=== PATIENT | male | born 1945 | race Caucasian/White ===

== ENCOUNTER 2023-06-08 12:44 | Emergency (ER) | payer MEDICARE, OTHER, SELFPAY ==
[2023-06-08 12:45] VITALS: BP 183/96
[2023-06-08 13:13] VITALS: BMI 33.8
--- NOTE | 2023-06-08 14:28 | ED.GENMED ---
History of Present Illness
General
Chief Complaint: Musculo-Skeletal Complaint
Source: patient
Exam Limitations: none
Time Seen by Provider: 06/08/23 13:02
Nursing documentation reviewed up to this point in time: agreed with
Travel History
Have you had any contact with someone who has COVID-19?: No
Do you have any symptoms of coronavirus? Fever > 100 degrees, chills, cough, shortness of breath, sore throat, loss of taste or smell, muscle aches, or headache?: No
History of Present Illness
History of Present Illness:
77-year-old male with past medical history of diabetes hypertension hyperlipidemia presenting to the emergency department today with concerns of injury to the left pinky finger as well as an injury to the nail of the middle finger of the left hand.
Claims that he fell and hit his hand causing it obvious deformity to the left pinky finger. Additionally he closed his third finger of the left hand in a door 2 days ago now has pressure behind the nailbed and black discoloration. Denies any
additional injuries no numbness weakness no additional concerns no breaks in the skin
Past History
Past History
ED Past Medical History: HTN, Hypercholesterolemia and NIDDM
ED Past Surgical History: None
Social History
Tobacco: Non-smoker
Alcohol: Occasional
Drug: None
Personal:
Living: with family
Review of Systems
Review of Systems
Allergies reviewed?: Yes
All Other Systems: ROS reviewed and negative except as documented in HPI and ROS
Phy Exam
Physical Exam
Physical Exam:
GENERAL: Alert , in no apparent distress
EYE: pupils equal and reactive
NECK: Supple, no significant adenopathy.
ENT: o/p clr, mmm.
CARDIAC: Regular rate and rhythm .
LUNGS: Clear breath sounds bilaterally, no acute respiratory distress, no wheezes/rales/rhonchi
ABDOMEN: Soft, without focal tenderness, no r/g, no cvat
NEUROLOGICAL: Alert and oriented, no focal neuro deficits
SKIN: Deformed left pinky finger at the PIP, black discoloration underneath the third finger nailbed
MUSCULOSKELETAL: No edema, well perfused.
PSYCH: Normal and appropriate interaction.
Course
Orders/Labs/Results
Orders:
Orders
06/08/23 13:02
CR Hand - Left Min 3 Views Urgent
Comment:
Reason For Exam: left hand injury
Vital Signs
Initial and Last Documented VS:
Initial Vital Signs
Temp Pulse Resp BP Pulse Ox
98.3 F 90 18 183/96 96
06/08/23 12:45 06/08/23 12:45 06/08/23 12:45 06/08/23 12:45 06/08/23 12:45
Last Documented Vital Signs
Temp Pulse Resp BP Pulse Ox
98.3 F 90 18 156/82 97
06/08/23 12:45 06/08/23 12:45 06/08/23 12:45 06/08/23 14:37 06/08/23 14:37
Procedures
Joint/Fracture Reduction
Left Fifth Finger:
Indication for procedure:: Dislocation of the middle phalanx of the left digit,
Procedure completed by: Tere Ureña
Consent form signed: No
If no, reason: Emergency procedure
Joint reduced: no treatment at this time
Anesthesia/sedation: Regional block (Digital block performed with 1% lidocaine)
Injury was: closed
Further treatement: needs re-check only
Post reduction exam: stable
Capillary Refill: normal
Normal distal neurovascular exam?: Yes
Additional information:
This was a reduction of the dislocation of the middle phalanx of the left fifth digit. The finger was anesthetized with a digital block. Patient tolerated well. This was splinted after with an aluminum splint wrapped with an Dave bandage.
Nail Trepanation/Felon
Method of Drainage: nail cauterized
Sterile dressing applied: Yes
Finger splint applied: Yes
Additional information:
Left third finger moderate blood removed symptoms significantly improved.
MDM/Problems Addressed
MDM/Problems Addressed:
77-year-old male presenting to the emergency department after falling and hitting his left hand causing deformity to the left fifth digit injured his left middle finger and has a subungual hematoma from an injury a few days ago. Subungual hematoma
was drained with electrocautery. Patient tolerated well. Otherwise his dislocation of his middle phalanx was reduced after performing a digital block. Patient tolerated well then was splinted will follow-up with hand surgery. Return precautions
given.
*Critical Care Note
Total Time (30-74mins, 75-104mins- exclusive of procedures): Not Applicable
ED Attending Note
-
Portions of this chart may have been created with voice recognition software.� Occasional wrong word or��sound alike� substitutions may have occurred due to the inherent limitations of voice recognition software.
Discharge Plan
Departure
Patient Disposition: Home (Routine Discharge)
Date of Disposition: 06/08/23
Time of Disposition: 14:28
Patient with high blood pressure during this ER visit?: No
Condition: Good
Covid-19: Not Applicable
Discharge Problem:
Closed dislocation of phalanx of hand, Subungual hematoma
Instructions: Finger Dislocation (DC), Bruising Under the Nail
Prescriptions:
No Action
Amlodipine
1 tab PO DAILY
Patient Comments:
09/12 unsure second med
metformin 500 MG tablet
500 mg PO BID
aspirin 81 MG tablet,delayed release (DR/EC)
81 mg PO DAILY
simvastatin 40 MG tablet
40 mg PO QPM
docosahexaenoic acid-epa 1 CAP capsule
2 cap PO DAILY
wgokexrn-imf-HI-lycopen-lutein [Centrum Silver] 1 EACH tablet
1 tab PO DAILY
fenofibrate nanocrystallized 145 MG tablet
145 mg PO DAILY
clindamycin HCl 300 MG capsule
300 mg PO QID Qty: 28 0RF
Referrals:
Anne Warren MD [Family Provider] -
Lance Ariza MD [Active] - Follow up in 5-7 days
Activity Restrictions/Additional Instructions:
You came to the emergency department today with concerns of a finger dislocation as well as bruising underneath your nailbed. These both were treated here. Please leave the splint in place and keep the area clean and covered until follow-up with
the hand doctor. Return to the emergency department for any worsening, new or concerning symptoms.
Interventions
Interventions:
*Risk Screen - Suicide Last Done: 06/08/23 13:03
*General Assessment Last Done: 06/08/23 13:13
*Neglect/Abuse Screening Last Done: 06/08/23 13:03
ED- Fall Risk Assessment Last Done: 06/08/23 13:03
*ED COVID-19 Vaccine History Last Done: 06/08/23 13:03
*Nursing Disposition Last Done: 06/08/23 14:37
ED-Musculoskeletal Assessment Last Done: 06/08/23 13:02
Discharge Date and Time
Discharge Date/Time: 06/08/23 14:38
[2023-06-08 14:37] VITALS: BP 156/82
== END 2023-06-08 14:38 | disposition home or self-care (01) ==
LOC: EMR 12:44
PROVIDERS: EMERGENCY PHYSICIAN Emergency Medicine; FAMILY PHYSICIAN Internal Medicine
DX: S63.297A Dislocation of distal interphalangeal joint of left little finger, initial encounter (principal); S60.032A Contusion of left middle finger without damage to nail, initial encounter; W23.0XXA Caught, crushed, jammed, or pinched between moving objects, initial encounter
CPT/HCPCS: 99284; 26770; 64450; 11740; 73130

== ENCOUNTER 2023-10-07 16:06 | Emergency (ER) | payer MEDICARE, OTHER, SELFPAY ==
[2023-10-07 16:09] VITALS: BP 156/74
[2023-10-07 16:38] LABS: Glucose - Point of Care 140 mg/dl (70-99)
--- NOTE | 2023-10-07 19:20 | ED.GENMED ---
History of Present Illness
General
Chief Complaint: Fatigue
Source: patient
Exam Limitations: none
Time Seen by Provider: 10/07/23 17:58
Nursing documentation reviewed up to this point in time: agreed with
Travel History
Have you had any contact with someone who has COVID-19?: No
Do you have any symptoms of coronavirus? Fever > 100 degrees, chills, cough, shortness of breath, sore throat, loss of taste or smell, muscle aches, or headache?: No
History of Present Illness
History of Present Illness:
78 y/o M with h/o HTN, HLD, NIDDM
says that 09/20 he started with fever, t max 102.7, treated with tylenol; fevers lasted about 1 week and then resolved
while he had the fever, his only real other symptom was fatigue
the fevers resolved and then he started having night sweats, narciso the first half of the night, he wakes up soaked in his pillow and upper part of his shirt
he changes locations, moves to the couch and then has an ok rest of the night
no longer having fever
very minimal occ cough
also have unexplained weight loss, lost about 10 pounds in 2weeks
on 10/03 he went to PCP and had labs and swabbed for covid and cxr
his labs i can reviewe on his phone: normal wbc, normal chem panel other than mild tranaminitis 60s,80s
cxr unable to be read, no reading on it and i cannot see it
ua glucose only
covid neg, lyme neg, mono neg
he is here becuase he isn't sure what to do
he wants to be sure there isn't something else candace gary
and was wondering if this is all from covid
Past History
Past History
ED Past Medical History: HTN, Hypercholesterolemia and NIDDM
ED Past Surgical History: None
Social History
Tobacco: Non-smoker
Alcohol: Occasional
Drug: None
Personal:
Living: with family
Review of Systems
Review of Systems
Allergies reviewed?: Yes
All Other Systems: Not applicable
Phy Exam
Physical Exam
Physical Exam:
GENERAL: Alert , in no apparent distress
EYE: pupils equal and reactive
NECK: Supple
ENT: o/p clr, mmm.
CARDIAC: Regular rate and rhythm
LUNGS: Clear breath sounds bilaterally, no acute respiratory distress, no wheezes/rales/rhonchi
ABDOMEN: Soft, large abdomen with ventral hernia, large, nontender without focal tenderness, no r/g, no cvat, normal bowel sounds
NEUROLOGICAL: Alert and oriented, no focal neuro deficits
SKIN: Warm and dry, skin intact.
MUSCULOSKELETAL: No edema, well perfused. neg melina's sign
PSYCH: Normal and appropriate interaction.
Course
Orders/Labs/Results
Orders:
Orders
10/07/23 18:24
CR Chest - 2 Views Urgent
Comment:
Reason For Exam: fatigue, night sweats, weight loss
10/07/23 19:15
Complete Blood Count/With Diff Urgent
Comprehensive Metabolic Panel Urgent
Lactic Acid Urgent
Lipase Urgent
Lyme Progressive Urgent
Monotest Urgent
TSH Reflex To Free T4 Urgent
10/07/23 19:16
Urinalysis Reflex To Culture Urgent
Date Specimen was Collected: 10/07/23
Time Specimen was Collected: 19:09
10/07/23 20:42
Azithromycin [Zithromax] 500 mg PO NOW STA
Doxycycline [Vibramycin] 100 mg PO NOW STA
Abnormal Lab Results
10/07/23 10/07/23 10/07/23
16:37 19:15 19:16
MCHC 32.1 L g/dL
(33.0-37.0)
Abs Immat Gran (auto) 0.2 H 10^3/uL
(0-0.05)
Immature Gran % 3.0 H %
(0-0.5)
Lymphocytes % 18.3 L %
(20.5-51.1)
Chloride 109 H mmol/L
(98-107)
BUN 21 H mg/dl
(9-20)
Glucose 121 H mg/dl
(70-99)
ALT 83 H U/L
(0-50)
Total Protein 6.1 L g/dl
(6.3-8.2)
Albumin 3.3 L g/dl
(3.5-5.0)
Lipase 443 H U/L
(23-300)
Urine Glucose 3+ A
(Negative)
POC Glucose 140 H mg/dl
(70-99)
10/07/23 19:15
10/07/23 19:15
Vital Signs
Initial and Last Documented VS:
Initial Vital Signs
Temp Pulse Resp BP Pulse Ox
97.7 F 83 16 156/74 97
10/07/23 16:09 10/07/23 16:09 10/07/23 16:09 10/07/23 16:09 10/07/23 16:09
Last Documented Vital Signs
Temp Pulse Resp BP Pulse Ox
97.7 F 70 15 135/66 96
10/07/23 16:09 10/07/23 18:28 10/07/23 18:28 10/07/23 21:07 10/07/23 18:00
MDM/Problems Addressed
Differential Diagnosis Includes:
pneumonia, sepsis, bacteremia, mono, lyme, malignancy
MDM/Problems Addressed:
78y/o M
2 weeks ago had a week of fever and then fever resolved but has had night sweats the past week or so as well as some unexplained weight loss, lack of appetite
pt actually says the past 2 days he has eaten more and he is gaining weight back
had outpatient labs which i reviewed on patient's portal
mild transaminitis
otherwise neg
had outpatient CXR but doesn't know the result
decided to come in [facility] he was n't sure what to do
NO H/O AIDS despite this being a previous medical problem
on exam well appearing
stable vitals
no resp distress
occ cough
no rales appreciated
abdomen obese and large ventral hernia but no tenderness
lfts slightly better but lipase 400;didn't have lipase checked last week
no belly pain, vomiting and has an appetite now
cxr indep reviewed pt has L sided pna
blood culures pending
pt antsy to go home
GIVEN DOXY AND AZITHRO
but would prefer single coverage with doxy
NOTE THAT I HAD ELECTRONICALLY FAXED THE AZITHROMYCIN WELL TO THE PHARMACY BUT I DID CALL TO CANCEL THE AZITHRO.
DOXY ONLY TO BE TAKEN.
THE PATIENT MAY CALL FOR CLARIFICATION.
*Critical Care Note
Total Time (30-74mins, 75-104mins- exclusive of procedures): Not Applicable
ED Attending Note
-
Portions of this chart may have been created with voice recognition software.� Occasional wrong word or��sound alike� substitutions may have occurred due to the inherent limitations of voice recognition software.
Discharge Plan
Departure
Patient Disposition: Home (Routine Discharge)
Date of Disposition: 10/07/23
Time of Disposition: 20:43
Patient with high blood pressure during this ER visit?: Yes
Condition: Fair
Covid-19: Not Applicable
Discharge Problem:
Pneumonia
Instructions: Pneumonia, Adult (DC)
Prescriptions:
New
doxycycline hyclate 100 mg tablet
100 mg PO BID Qty: 14 0RF
No Action
Amlodipine
1 tab PO DAILY
Patient Comments:
09/12 unsure second med
metformin 500 MG tablet
500 mg PO BID
aspirin 81 MG tablet,delayed release (DR/EC)
81 mg PO DAILY
simvastatin 40 MG tablet
40 mg PO QPM
docosahexaenoic acid-epa 1 CAP capsule
2 cap PO DAILY
ladwwtic-ehx-HM-lycopen-lutein [Centrum Silver] 1 EACH tablet
1 tab PO DAILY
fenofibrate nanocrystallized 145 MG tablet
145 mg PO DAILY
clindamycin HCl 300 MG capsule
300 mg PO QID Qty: 28 0RF
Referrals:
Anne Warren MD [Family Provider] - Follow up in 5-7 days
Activity Restrictions/Additional Instructions:
You have a pneumonia in yourLeft lung base. This needs to be repeated with a chest x-ray or CAT scan about 2 weeks from now to ensure that it is cleared up. In the meantime take doxycycline twice a day for 7 days and Zithromax once a day for 4
more days starting tomorrow.
You did have a subtle rise in your lipase enzyme which is a pancreas enzyme and this could be reactive from your infection but you really ought to have this rechecked by your family doctor. If this is rising you could need further workup.
If you start having nausea or vomiting you should return to the ER.
Also return for chest pain, shortness of breath, fever or chills or any concerns
Interventions
Interventions:
*Risk Screen - Suicide Last Done: 10/07/23 17:19
*General Assessment Last Done: 10/07/23 17:19
*Neglect/Abuse Screening Last Done: 10/07/23 17:19
ED- Fall Risk Assessment Last Done: 10/07/23 21:12
*ED COVID-19 Vaccine History Last Done: 10/07/23 16:15
*Nursing Disposition Last Done: 10/07/23 21:12
Discharge Date and Time
Discharge Date/Time: 10/07/23 21:13
Print Language: WOLOF
[2023-10-07 19:30] LABS: % Basophils 1.2 % (0-2); % Eosinophils 3.1 % (0-6); % Lymphocytes 18.3 % (20.5-51.1); % Monocytes 8.4 % (1.7-9.3); Absolute Basophils 0.1 10^3/uL (0-0.2); Absolute Eosinophils 0.2 10^3/uL (0-0.7); Absolute Immature Granulocytes 0.2 10^3/uL (0-0.05); Absolute Lymphocytes 1.4 10^3/uL (1.2-3.4); Absolute Monocytes 0.6 10^3/uL (0.1-0.6); Absolute Neutrophils 5.1 10^3/uL (1.4-6.5); Hematocrit 41.8 % (39.0-52.0); Hemoglobin 13.4 g/dL (13.0-18.0); Mean Corp Hgb Conc. 32.1 g/dL (33.0-37.0); Mean Corpuscular Hgb 28.2 pg (27.0-31.0); Mean Corpuscular Volume 87.8 fL (80.0-94.0); Mean Platelet Volume 9.7 fL (7.4-10.4); Nucleated Red Blood Cells % 0 % (-); Platelet Count 305 10^3/uL (130-400); Red Blood Cell Count 4.76 10^6/uL (4.70-6.10); Red Cell Dist. Width 14.4 % (11.5-14.5); White Blood Cell Count 7.7 10^3/uL (4.8-10.8)
[2023-10-07 19:31] LABS: Urine Albumin Negative (Neg - Trace); Urine Bilirubin Negative (Negative); Urine Character Clear (Clear); Urine Color Yellow; Urine Glucose 3+ (Negative); Urine Ketone Negative (Negative); Urine Leukocyte Negative (Negative); Urine Nitrite Negative (Negative); Urine Occult Blood Negative (Negative); Urine Urobilinogen Negative (Neg - 1+)
[2023-10-07 19:48] LABS: Monotest Negative (Negative)
[2023-10-07 19:49] LABS: Lactic Acid 1.4 mmol/L (0.7-2.0)
[2023-10-07 19:51] LABS: ALT (SGPT) 83 U/L (0-50); AST (SGOT) 35 U/L (17-59); Albumin 3.3 g/dl (3.5-5.0); Alkaline Phosphatase 86 U/L (38-126); Blood Urea Nitrogen 21 mg/dl (9-20); Carbon Dioxide 24 mmol/L (22-30); Chloride 109 mmol/L (98-107); Glucose 121 mg/dl (70-99); Potassium 4.5 mmol/L (3.5-5.1); Sodium 140 mmol/L (135-145); Total Bilirubin 0.4 mg/dl (0.2-1.3); Total Protein 6.1 g/dl (6.3-8.2); eGFR > 60.00
[2023-10-07 19:52] LABS: Lipase 443 U/L (23-300)
[2023-10-07 20:18] LABS: TSH Reflex To Free T4 0.87 uIU/ml (0.47-4.68)
[2023-10-07] MEDS: VIBRAMYCIN 100 MG PO (20:59)
[2023-10-07] MEDS: ZITHROMAX 500 MG PO (20:59)
[2023-10-07 21:07] VITALS: BP 135/66
[2023-10-11 14:39] LABS: Lyme Antibody Screen, EIA Negative (Negative)
== END 2023-10-07 21:13 | disposition home or self-care (01) ==
LOC: EMR 16:06
PROVIDERS: Physician Assistant; EMERGENCY PHYSICIAN Student in an Organized Health Care Education/Training Program; FAMILY PHYSICIAN Internal Medicine
DX: J18.9 Pneumonia, unspecified organism (principal)
CPT/HCPCS: 99283; 71046; 80053; 81003; 82962; 83605; 83690; 84443; 85025; 86308; 86618

== ENCOUNTER → 2023-12-21 12:25 | Outpatient (REF) | payer MEDICARE, OTHER, SELFPAY | LOC: RAD 12:25 | PROVIDERS: ATTENDING PHYSICIAN Internal Medicine | DX: J18.9 Pneumonia, unspecified organism (principal) | CPT/HCPCS: 71046 ==

== ENCOUNTER → 2024-07-31 09:10 | Outpatient (REF) | payer MEDICARE, OTHER, SELFPAY ==
[2024-07-31 11:15] LABS: ALT (SGPT) 76 U/L (0-50); AST (SGOT) 37 U/L (17-59); Albumin 4.2 g/dl (3.5-5.0); Alkaline Phosphatase 77 U/L (38-126); Direct Bilirubin 0.2 mg/dl (0.0-0.4); Total Bilirubin 0.5 mg/dl (0.2-1.3); Total Protein 6.7 g/dl (6.3-8.2)
== END ==
LOC: RAD 09:10
PROVIDERS: ATTENDING PHYSICIAN Internal Medicine Gastroenterology; FAMILY PHYSICIAN Internal Medicine
DX: R79.89 Other specified abnormal findings of blood chemistry (principal)
CPT/HCPCS: 36415; 76700; 80076

== ENCOUNTER 2024-10-02 06:20 | Day surgery (SDC) | payer MEDICARE, OTHER, SELFPAY ==
[2024-10-02 09:26] LABS: Glucose - Point of Care 109 mg/dl (70-99)
== END 2024-10-02 11:01 | disposition home or self-care (01) ==
LOC: GI 06:20
PROVIDERS: ATTENDING PHYSICIAN Internal Medicine Gastroenterology
DX: Z12.11 Encounter for screening for malignant neoplasm of colon (principal); K57.30 Diverticulosis of large intestine without perforation or abscess without bleeding; K64.8 Other hemorrhoids; D12.5 Benign neoplasm of sigmoid colon; D12.4 Benign neoplasm of descending colon; D12.8 Benign neoplasm of rectum; K62.1 Rectal polyp; Z86.0100 Personal history of colon polyps, unspecified
CPT/HCPCS: 45385; 45380; 88305; 82962